=== PATIENT | female | born 1970 | race Caucasian/White ===

== ENCOUNTER → 2016-07-04 | Outpatient (CLI) | payer OTHER ==
[~2016-07-04] MED LIST: ACET-1311 PO; FLX10 PO; FRRS300 PO; IBUP-1050 PO; MULT-506 PO; PRENTAB26 PO
== END | disposition home or self-care (01) ==
LOC: C.PAPS 12:02
PROVIDERS: ATTEND Obstetrics & Gynecology
DX: Z01.419 Encounter for gynecological examination (general) (routine) without abnormal findings (principal)

== ENCOUNTER → 2016-07-12 | Outpatient (CLI) | payer OTHER ==
--- NOTE | 2016-07-12 16:45 | MAMMOGRAPHY REPORT ---
BILATERAL DIGITAL SCREENING MAMMOGRAM TOMOSYNTHESIS WITH CAD: 07/12/2016 CLINICAL HISTORY: Routine screening. Patient has no complaints. TECHNIQUE: Breast tomosynthesis in addition to standard 2D mammography was performed. Current study was also evaluated with a Computer Aided Detection (CAD) system. COMPARISON: Comparison is made to exams dated: 02/03/2016 mammogram, 02/03/2016 ultrasound, 04/01/2015 m ammogram, 10/14/2014 ultrasound, 10/14/2014 mammogram, and 05/08/2014 mammogram - [facility] [place]. BREAST COMPOSITION: The tissue of both breasts is extremely dense, which lowers the sensitivity of mammography. FINDINGS: No suspicious masses, calcifications, or areas of architectural distortion are noted in e ither breast. There has been no significant interval change compared to prior exams. Benign-appeari ng calcifications in the right upper outer quadrant with an associated biopsy marker clip are not si gnificantly changed; these were previously biopsied and yielded benign pathology. IMPRESSION: ACR BI-RADS CATEGORY 2: BENIGN There is no mammographic evidence of malignancy. A 1 year screening mammogram is recommended. The p atient will receive written notification of the results. Approximately 10% of breast cancers are not detected with mammography. A negative mammographic repor t should not delay biopsy if a clinically suggestive mass is present. Jade Morris M.D. /:07/12/2016 15:19:51 Utility Helicopter Repairer: Deirdre Robles, [facility] letter sent: Normal 1/2 BI-RADS Code: ACR BI-RADS Category 2: Benign
== END | disposition home or self-care (01) ==
LOC: C.MAMM 14:51
PROVIDERS: ATTEND Obstetrics & Gynecology
DX: Z12.31 Encounter for screening mammogram for malignant neoplasm of breast (principal)

== ENCOUNTER → 2016-07-15 | Outpatient (CLI) | payer OTHER ==
[2016-07-15 17:18] LABS: HEMATOCRIT 34.4 % (37-47); MEAN CELL VOLUME 91.5 fL (80-100); MEAN CORPUSCULAR HEMOGLOBIN 30.3 pg (25-34); MEAN CORPUSCULAR HGB CONC 33.1 g/dl (32-36); MEAN PLATELET VOLUME 10.3 fL (7.4-10.4); PLATELET COUNT 209 K/uL (130-400); RED BLOOD COUNT 3.76 M/uL (4.2-5.4); WHITE BLOOD COUNT 4.26 K/uL (4.8-10.8)
== END | disposition home or self-care (01) ==
LOC: C.LAB1850 16:22
PROVIDERS: ATTEND Obstetrics & Gynecology
DX: N93.9 Abnormal uterine and vaginal bleeding, unspecified (principal)

== ENCOUNTER → 2016-07-26 | Outpatient (CLI) | payer OTHER | END | disposition home or self-care (01) | LOC: C.PATHSPEC 17:47 | PROVIDERS: ATTEND Obstetrics & Gynecology | DX: N93.9 Abnormal uterine and vaginal bleeding, unspecified (principal) ==

== ENCOUNTER → 2016-08-15 | Day surgery (SDC) | payer OTHER ==
[2016-08-12 13:49] VITALS: Ht 171.5 cm; Wt 54.5 kg
[~2016-08-15] VITALS: Ht 171.5 cm; Wt 54.5 kg
[~2016-08-15] MED LIST changes: -ACET-1311 PO; +ATROPINE SULFATE 0.1 MG/ML 5ML SYR IV PRN; +DEXAMETHASONE SOD INJ 4 MG/ML VIAL ONE; +EpHEDrine SULFATE INJ 50 MG/ML AMP IV PRN; +FENTANYL CITRATE INJ 50 MCG/1 ML 2 ML VIAL IV PRN; +FENTANYL CITRATE INJ 50 MCG/1 ML 2 ML VIAL ONE; -FLX10 PO; -FRRS300 PO; -IBUP-1050 PO; +IBUPROFEN 600 MG TAB PO PRN; +KETOROLAC TROMETHAMINE 30 MG/ML VIAL IV. PRN; +KETOROLAC TROMETHAMINE 30 MG/ML VIAL ONE; +LACTATED RINGER'S 1000ML 1,000 ML IV SCH; +LIDOCAINE HCL 2% 2 ML VIAL (20MG/ML) ONE; +MIDAZOLAM HCL 1 MG/ML 2ML VIAL ONE; +ONDANSETRON INJ 2 MG/ML 2 ML VIAL IV PRN; +ONDANSETRON INJ 2 MG/ML 2 ML VIAL ONE; +OXYCODONE/ACETAMINOPHEN 5-325 TAB PO PRN; -PRENTAB26 PO; +PROPOFOL IV EMULSION 10 MG/ML 20 ML VIAL IV ONE; +SODIUM CHLORIDE 0.9% 1000ML 1,000 ML IV SCH
--- NOTE | 2016-08-15 08:20 | History & Physical Bridge - SC ---
H&P Re-Evaluation Bridge Note: I have examined the patient, reviewed the History & Physical and in the interval since the performance of the History & Physical I have noted the following changes of clinical significance: No changes noted
--- NOTE | 2016-08-15 09:02 | Medical Student: [facility] ---
Immediate Operative Summary Operative Date Aug 15, 2016. Pre-Operative Diagnosis Menorrhagia, questionable polyp on ultrasound Post-Operative Diagnosis Same, without polyp Procedure(s) Performed Cervical dilation and curettage, hysteroscopy, endometrial ablation Surgeon Tawnya Lobo MD Business Analysis Analyst Surgeon(s) None Estimated Blood Loss 0 Findings No polyp visualized Uterus sounded to 7.5cm Otherwise normal anatomy Fluids (cc crystalloids) 500mL LR Specimens Endometrial curettings Drains None Anesthesia General anesthesia via endotracheal intubation Complication(s) None Disposition Recovery Room / PACU
--- NOTE | 2016-08-15 09:45 | [facility] Post Operative Brief Note ---
Immediate Operative Summary Operative Date Aug 15, 2016. Pre-Operative Diagnosis Abnormal Uterine Bleeding, Abnormal ultrasound of pelvis, Anemia Post-Operative Diagnosis Same Procedure(s) Performed Dilatation And Curettage, Hysteroscopy, Endometrial Ablation Surgeon Dr. Lobo Field Support Technician Surgeon(s) None Estimated Blood Loss 0 Findings uterus sounds to 7.5cm. cx length 3cm. No evidence of polyp at time of hysterscopy. Normal tubal ostia bilaterally. Ablation takes placed with 114 power in 1 min 45 sec. Saline deficit 35cc. Cavity width was 4.6cm. Fluids (cc crystalloids) 600 Specimens Endometrial Curettings Drains none Anesthesia general Complication(s) None Disposition Recovery Room / PACU
--- NOTE | 2016-08-15 09:46 | Discharge Instructions ---
Discharge Instructions Date of Service Aug 15, 2016. Admission Reason for Admission: Pelvic Pain, Mass Of Pelvis Discharge Discharge Diagnosis / Problem: status post surgery Discharge Goals Goal(s): Routine recovery after surgery Activity Recommendations Activity Limitations: as noted below . Instructions / Follow-Up Instructions / Follow-Up ACTIVITY RECOMMENDATIONS: * Avoid tampons, douching, hot tubs, pools, and intercourse until bleeding has stopped. * May shower as usual. * No strenuous activity for 24-48 hours. After 24-48 hours, you may do anything you feel like doing (driving and sports are okay). SPECIAL CARE INSTRUCTIONS: Special Diet: * Mild nausea may occur in the immediate post-operative period. * Take clear liquids such as tea, cola or bouillon until all nausea has subsided; you may then resume your normal diet. Special Care: * Light bleeding and vaginal spotting can last from a few days to 3-4 weeks. Call your doctor if bleeding becomes heavier than the heaviest part of your period. * Check your temperature twice a day for one week. If it goes above 100.4 degrees Fahrenheit (38.0 Celsius), notify your doctor. * Call your doctor's office for an appointment for 2 weeks after your surgery. FOLLOW-UP VISIT: Call your doctor's office for an appointment for 2 weeks after your surgery. Current Hospital Diet Patient's current hospital diet: Discharge Diet Recommended Diet: Regular Diet Procedures Procedures Performed: Dilatation And Curettage, Hysteroscopy, Endometrial Ablation Pending Studies Studies pending at discharge: yes List of pending studies: pathology Medical Emergencies . Who to Call and When: Medical Emergencies: If at any time you feel your situation is an emergency, please call 911 immediately. . Non-Emergent Contact Non-Emergency issues call your: Direct Mail Marketer . . "Provider Documentation" section prepared by Tawnya Lobo. VTE Core Measure Inpt VTE Proph given/why not?: Treatment not indicated
--- NOTE | 2016-08-15 10:03 | Medical Student: [facility] ---
Immediate Operative Summary Operative Date Aug 15, 2016. Pre-Operative Diagnosis Abnormal Uterine Bleeding, anemia, Abnormal ultrasound of pelvis Post-Operative Diagnosis Same, No Polyp visualized on hysteroscopy Procedure(s) Performed Cervical Dilation and Curretage, Hysteroscopy, Endometrial Ablation Surgeon Tawnya Lobo MD Oil Pumper Surgeon(s) none Estimated Blood Loss none Findings Uterus sounded to 7.5cm No Polyp visualized Otherwise normal anatomy, both tubal ostia visualized Fluids (cc crystalloids) 500mL LR Specimens Endometyrial curettings Drains none Anesthesia General Complication(s) None Disposition Recovery Room / PACU
--- NOTE | 2016-08-15 10:12 | OPERATIVE REPORT ---
DATE OF OPERATION: 08/15/2016 PREOPERATIVE DIAGNOSES: 1. Abnormal uterine bleeding. 2. Abnormal ultrasound of the pelvis. 3. Anemia. POSTOPERATIVE DIAGNOSES: Same. PROCEDURES: 1. Dilatation and curettage. 2. Hysteroscopy. 3. Endometrial ablation with NovaSure device. SURGEON: Dr. Tawnya Lobo. PARCEL POST TRUCK DRIVER: None. IV FLUIDS: 600 mL. ESTIMATED BLOOD LOSS: 0 mL. ANESTHESIA: General. FINDINGS: Uterus sounds to 7.5 cm and has a 3-cm cervical length. The cavity did not display any evidence of a polyp and the tubal ostia bilaterally are normal. Moderate curettings obtained and sent. Hysteroscopic fluid deficit of saline [address] in 1 minute 45 seconds. INDICATIONS: A 46-year-old with a history of abnormal uterine bleeding as well as history of anemia with findings suggestive of an endometrial polyp, who seeks a surgical treatment. She is using condoms for control and is aware that an ablation is not a control method. She wants to attempt surgical management to clean out the uterine cavity as well as attempt an endometrial ablation to control her heavy periods. DESCRIPTION OF PROCEDURE: The patient was taken to the operating room and identified. After adequate general anesthesia was obtained, she was placed in the dorsal lithotomy position and prepped and draped in the usual sterile fashion. The bladder was drained for clear yellow urine. A weighted speculum and anterior retractor were placed to visualize the cervix. The cervix was grasped in its anterior lip with an Allis clamp. Cervix was sequentially dilated using Hegar dilators to 23. The diagnostic hysteroscope primed with saline medium was gently placed through the cervical os into the uterine cavity and the findings were as noted above. The uterus was curettaged to a gritty consistency and all specimens were sent. The cavity length had been determined to be 4.5 cm. Please see the measurements as noted above. The NovaSure endometrial ablation device was readied. It was gently placed through the cervical os into the uterine cavity and the cavity width was determined. It was 4.6 cm. The NovaSure endometrial ablation device passed the cavity assessment test and then a NovaSure ablation took place in 1 minute 45 seconds with a power of 114. The device was allowed to cool and then was removed from the uterus. The hysteroscope was gently reintroduced into the endocervix and the uterine cavity with findings consistent with ablation and no evidence of uterine perforation. At this point, the procedure was terminated. The retractors were removed. The patient was returned to supine position, awoke from anesthesia and transferred to recovery room in stable condition. All sponge, lap and needle counts were correct x2. I attest to the content of the Intraoperative Record and any orders documented therein. Any exceptions are noted below. MTDD
[2016-08-15 10:34] VITALS: TEMP 36.4
--- NOTE | 2016-08-15 10:46 | Anesthesia Progress Nt - [facility] ---
Anesthesia Post Op Note Date & Time Aug 15, 2016 at 10:46 Vital Signs Pain Intensity: 0 Vital Signs Past 12 Hours Date Time Temp Pulse Resp B/P Pulse Ox O2 Delivery O2 Flow Rate FiO2 08/15/16 10:34 36.4 65 16 102/35 99 Room Air 08/15/16 10:32 99/49 08/15/16 10:31 99/49 08/15/16 10:29 61 16 99 08/15/16 10:29 61 16 08/15/16 10:29 36.4 59 20 99/47 99 Room Air 08/15/16 10:28 69 20 100 08/15/16 10:28 69 20 08/15/16 10:26 99/47 08/15/16 10:23 66 13 100 08/15/16 10:23 66 13 08/15/16 10:22 64 17 100 08/15/16 10:22 64 17 08/15/16 10:21 101/36 08/15/16 10:17 61 8 08/15/16 10:17 62 8 100 08/15/16 10:16 98/54 08/15/16 10:14 62 13 100 08/15/16 10:14 63 13 08/15/16 10:13 69 16 08/15/16 10:13 70 16 100 08/15/16 10:12 74 14 100 08/15/16 10:12 68 14 08/15/16 10:11 98/46 08/15/16 10:07 70 12 100 08/15/16 10:07 72 12 08/15/16 10:06 108/52 08/15/16 10:02 65 16 08/15/16 10:02 63 16 100 08/15/16 10:01 108/53 08/15/16 10:00 76 16 08/15/16 10:00 75 16 100 08/15/16 09:56 131/53 08/15/16 09:55 36.4 79 16 131/53 100 Mask 8 08/15/16 07:19 36.5 78 16 94/62 100 Room Air Notes Mental Status: alert / awake / arousable, participated in evaluation Pt Amnestic to Procedure: Yes Nausea / Vomiting: adequately controlled Pain: adequately controlled Airway Patency, RR, SpO2: stable & adequate BP & HR: stable & adequate Hydration State: stable & adequate Anesthetic Complications: no major complications apparent
[2016-08-15 11:06] VITALS: BP 103/68; PULSE 62; O2SAT 100
== END | disposition home or self-care (01) ==
LOC: X.SURG 07:11
PROVIDERS: ATTEND Obstetrics & Gynecology
DX: N93.9 Abnormal uterine and vaginal bleeding, unspecified (principal); D64.9 Anemia, unspecified; R93.8 Abnormal findings on diagnostic imaging of other specified body structures; N83.201 Unspecified ovarian cyst, right side; N94.6 Dysmenorrhea, unspecified; Z80.0 Family history of malignant neoplasm of digestive organs

== ENCOUNTER → 2017-04-06 | Outpatient (CLI) | payer OTHER ==
[~2017-04-06] MED LIST changes: -ATROPINE SULFATE 0.1 MG/ML 5ML SYR IV PRN; -DEXAMETHASONE SOD INJ 4 MG/ML VIAL ONE; -EpHEDrine SULFATE INJ 50 MG/ML AMP IV PRN; -FENTANYL CITRATE INJ 50 MCG/1 ML 2 ML VIAL IV PRN; -FENTANYL CITRATE INJ 50 MCG/1 ML 2 ML VIAL ONE; -IBUPROFEN 600 MG TAB PO PRN; -KETOROLAC TROMETHAMINE 30 MG/ML VIAL IV. PRN; -KETOROLAC TROMETHAMINE 30 MG/ML VIAL ONE; -LACTATED RINGER'S 1000ML 1,000 ML IV SCH; -LIDOCAINE HCL 2% 2 ML VIAL (20MG/ML) ONE; -MIDAZOLAM HCL 1 MG/ML 2ML VIAL ONE; -ONDANSETRON INJ 2 MG/ML 2 ML VIAL IV PRN; -ONDANSETRON INJ 2 MG/ML 2 ML VIAL ONE; -OXYCODONE/ACETAMINOPHEN 5-325 TAB PO PRN; -PROPOFOL IV EMULSION 10 MG/ML 20 ML VIAL IV ONE; -SODIUM CHLORIDE 0.9% 1000ML 1,000 ML IV SCH
--- NOTE | 2017-04-06 14:15 | DIAGNOSTIC IMAGING REPORT ---
R SHOULDER MIN 2 VIEWS ROUTINE HISTORY: 47 years-old Female PAIN IN R SHOULDER acute right shoulder pain without reported trauma COMPARISON: Chest radiograph 08/07/2013 TECHNIQUE: 3 views of the right shoulder FINDINGS: There is no acute fracture, dislocation or significant degenerative changes. The imaged lung peter are clear. No opaque foreign body. IMPRESSION: No acute bony abnormality. The above report was generated using voice recognition software. It may contain grammatical, syntax or spelling errors. Electronically signed by: Simon Diaz M.D. 04/06/2017 2:14 PM Dictated Date/Time: 04/06/2017 2:13 PM
== END | disposition home or self-care (01) ==
LOC: C.RAD1850 13:52
PROVIDERS: ATTEND Family Medicine
DX: M25.511 Pain in right shoulder (principal)

== ENCOUNTER → 2017-04-10 | Outpatient (CLI) | payer OTHER ==
--- NOTE | 2017-04-10 17:36 | DIAGNOSTIC IMAGING REPORT ---
KUB HISTORY: Acute hematuria with generalized abdominal pain HEMATURIA,ABD PAIN COMPARISON: None. FINDINGS: The bowel gas pattern is non-obstructive. There is no organomegaly. Calcifications of the pelvis are seen measuring up to 3 mm on the left suggesting phleboliths. No definite nephrolithiasis or ureteral calculi identified. No pneumoperitoneum or pneumatosis. No fracture. IMPRESSION: 1. Nonobstructive bowel gas pattern. 2. Calcifications of the pelvis suggest phleboliths. No definite nephrolithiasis or ureteral calculi identified. Electronically signed by: Simon Diaz M.D. 04/10/2017 5:34 PM Dictated Date/Time: 04/10/2017 5:33 PM
== END | disposition home or self-care (01) ==
LOC: C.RAD 16:44
PROVIDERS: ATTEND Family Medicine
DX: R31.9 Hematuria, unspecified (principal); R10.84 Generalized abdominal pain

== ENCOUNTER → 2017-07-13 | Outpatient (CLI) | payer OTHER ==
--- NOTE | 2017-07-13 15:08 | MAMMOGRAPHY REPORT ---
BILATERAL DIGITAL SCREENING MAMMOGRAM TOMOSYNTHESIS WITH CAD: 07/13/2017 CLINICAL HISTORY: Routine screening. Patient has no complaints. TECHNIQUE: Breast tomosynthesis in addition to standard 2D mammography was performed. Current study was also evaluated with a Computer Aided Detection (CAD) system. COMPARISON: Comparison is made to exams dated: 07/12/2016 mammogram, 02/03/2016 mammogram, 02/03/2016 ult rasound, 04/01/2015 mammogram, 10/14/2014 ultrasound, and 10/14/2014 mammogram - [facility] enter. BREAST COMPOSITION: The tissue of both breasts is extremely dense, which lowers the sensitivity of m ammography. FINDINGS: No suspicious masses, calcifications, or areas of architectural distortion are noted in ei ther breast. There has been no significant interval change compared to prior exams. Benign-appearing calcifications in the right upper outer quadrant with an associated biopsy marker clip are not signi ficantly changed; these were previously biopsied and yielded benign pathology. IMPRESSION: ACR BI-RADS CATEGORY 2: BENIGN There is no mammographic evidence of malignancy. A 1 year screening mammogram is recommended. The pa tient will receive written notification of the results. Approximately 10% of breast cancers are not detected with mammography. A negative mammographic report should not delay biopsy if a clinically suggestive mass is present. Jade Morris M.D. /:07/13/2017 12:17:27 Community Outreach Advocate: Kristofer Rhodes M, [facility] letter sent: Normal 1/2 BI-RADS Code: ACR BI-RADS Category 2: Benign
== END | disposition home or self-care (01) ==
LOC: C.MAMM 08:19
PROVIDERS: ATTEND Nurse Practitioner Family
DX: Z12.31 Encounter for screening mammogram for malignant neoplasm of breast (principal)

== ENCOUNTER → 2017-08-07 | Outpatient (CLI) | payer OTHER ==
[~2017-08-07] MED LIST changes: +GADAVIST IV PRN
--- NOTE | 2017-08-07 08:15 | DIAGNOSTIC IMAGING REPORT ---
MRI OF THE PELVIS WITH AND WITHOUT CONTRAST CLINICAL HISTORY: Painful intercourse dysuria, right lower quadrant pain and rectal fullness. Recent ablation. COMPARISON STUDY: No previous studies for comparison. TECHNIQUE: Utilizing a 1.5 Pam magnet and dedicated coil, multiplanar, multiecho imaging of the pelvis was performed pre and postcontrast administration. Injection of 5.5 cc of Gadavist IV was uneventful. FINDINGS: No suspicious marrow replacement is present. There is no pelvic lymphadenopathy. Trace free pelvic fluid is likely physiologic. A 3.7 cm T2 hyperintense nonenhancing right adnexal lesion is noted. The left ovary is unremarkable. There is a possible 2.2 cm T2 hypointense left posterior uterine fundal lesion. This may reflect a fibroid. This is suboptimally assessed due to motion artifact. There is no perirectal/perianal abnormality. Caliber and wall thickness of visualized small and large bowel is normal. There are are small perineural cysts within the sacrum. IMPRESSION: 1. 3.7 cm right adnexal lesion which likely reflects a cyst. This is likely benign. A follow-up pelvic ultrasound in 6 weeks to ensure resolution is recommended. 2. No perirectal/perianal abnormality by MRI. 3. Possible 2.2 cm left uterine fundal fibroid. 3. Small amount of fluid within the pelvis which is likely physiologic. Electronically signed by: Sj Arellano M.D. 08/07/2017 8:14 AM Dictated Date/Time: 08/07/2017 7:43 AM
== END | disposition home or self-care (01) ==
LOC: C.MRI 06:05
PROVIDERS: ATTEND Nurse Practitioner Family
DX: R10.31 Right lower quadrant pain (principal); R30.0 Dysuria; R53.83 Other fatigue; R11.0 Nausea; K62.89 Other specified diseases of anus and rectum; R19.8 Other specified symptoms and signs involving the digestive system and abdomen; N94.10 Unspecified dyspareunia

== ENCOUNTER → 2017-09-08 | Outpatient (CLI) | payer OTHER ==
[~2017-09-08] MED LIST changes: -GADAVIST IV PRN
== END | disposition home or self-care (01) ==
LOC: C.PAPS 12:21
PROVIDERS: ATTEND Obstetrics & Gynecology
DX: Z12.4 Encounter for screening for malignant neoplasm of cervix (principal)

== ENCOUNTER → 2017-09-22 | Outpatient (CLI) | payer OTHER | END | disposition home or self-care (01) | LOC: C.PATHSPEC 12:51 | PROVIDERS: ATTEND Physician Assistant | DX: D22.5 Melanocytic nevi of trunk (principal) ==